=== PATIENT | male | born 1960 | race Caucasian/White ===

== ENCOUNTER 2016-04-06 17:30 | Emergency (ER) | payer MEDICARE ==
[~2016-04-06 17:30] MED LIST: ACET500CAP PO; CALCIUM OTC PO; DIL4TAB PO; DURA50 TOP; FEOSOLEL PO; FOLIC ACID OTC PO; FOLIC ACID400 MC1 PO; IRON325 MG PO; MARI2.5 PO; MIRALAXPKT PO; NEUR300 PO; NEXIUM40 PO; NORV5 PO; PR25 PO; REG PO; VITAMIN B-12 OTC PO; ZANTAC300 MG PO
== END 2016-04-06 21:20 | disposition home or self-care (01) ==
LOC: ER 17:30
PROC: 2W3KX1Z Immobilization of Left Finger using Splint (ICD-10-PCS; principal; 2016-04-06)
DX: S61.012A Laceration without foreign body of left thumb without damage to nail, initial encounter (principal); Z88.8 Allergy status to other drugs, medicaments and biological substances; Z79.899 Other long term (current) drug therapy; W19.XXXA Unspecified fall, initial encounter
CPT/HCPCS: 73140-LT; 90471; 90714; 99283; A9270-GY